=== PATIENT | female | born 1955 | race Two or more races ===

== ENCOUNTER → 2016-09-28 | Day surgery (SDC) | payer BC ==
[~2016-09-28] MED LIST: GLIP10TA13 PO; IV RINGERS,LACTATED 1000ML 1,000 ML IV SCH; LIDOCAINE 2% PF Vial for OR 5 ML VIAL. ONE; METF500T4 PO; PROPOFOL 40 ML IV ONE
[2016-09-28 11:15] VITALS: BP 120/81
--- NOTE | 2016-09-28 11:32 | PREOP HP ---
DATE OF SERVICE: 09/28/2016 DATE OF PROCEDURE: 09/28/2016 REQUESTING PHYSICIAN: Carol Reyes MD PRIMARY CARE PHYSICIAN: Carol Reyes MD REASON FOR PROCEDURE: Colon cancer screening and heme-positive stool. HISTORY OF PRESENT ILLNESS: This is a 61-year-old female who presents today for colorectal cancer screening. She previously had a colonoscopy 5-8 years ago and denies any blood in her stool or dark tarry stools. She was found to have heme-positive stool by her primary care physician. FAMILY HISTORY: Negative for colorectal cancer. ALLERGIES: No known drug allergies. PAST MEDICAL HISTORY: Significant for: 1. Depression. 2. Diabetes. SOCIAL HISTORY: She admits to tobacco, but denies IV drug abuse or alcohol. MEDICATIONS: Metformin. REVIEW OF SYSTEMS: A 13-point review of systems was done. It is positive as per HPI and otherwise negative. PHYSICAL EXAMINATION: GENERAL: She is a well-developed, well-nourished female in no apparent distress. HEENT: Oropharynx is clear. CARDIOVASCULAR: S1 and S2. LUNGS: Clear. ABDOMEN: Normoactive bowel sounds, soft, nontender, nondistended. EXTREMITIES: No edema. NEUROLOGIC: Awake, alert and oriented x 3. ASSESSMENT AND PLAN: Colorectal cancer screening. The risks and benefits of the procedure including bleeding, perforation and underlying were explained and she has agreed to proceed. Thank you for allowing me to participate in the care of this patient. KAMRAN NATARAJAN MD DR: CLIFF/kervin JOB#: [id number] / [id number] CAROL Henderson MD
== END | disposition home or self-care (01) ==
LOC: ENDOS 09:02
PROVIDERS: ATTEND Internal Medicine Gastroenterology
DX: K57.30 Diverticulosis of large intestine without perforation or abscess without bleeding (principal); K64.0 First degree hemorrhoids; E11.9 Type 2 diabetes mellitus without complications; F41.9 Anxiety disorder, unspecified; F32.9 Major depressive disorder, single episode, unspecified; F17.200 Nicotine dependence, unspecified, uncomplicated
CPT/HCPCS: 45378; 82947; J2704

== ENCOUNTER → 2017-07-05 | Outpatient (CLI) | payer BC ==
[2016-09-28 11:15] VITALS: BP 120/81
[~2017-07-05] MED LIST changes: -IV RINGERS,LACTATED 1000ML 1,000 ML IV SCH; -LIDOCAINE 2% PF Vial for OR 5 ML VIAL. ONE; -PROPOFOL 40 ML IV ONE
--- NOTE | 2017-07-05 12:37 | RAD ---
DATE: 07/05/2017. EXAM: DIGITAL SCREEN BILAT W/CAD. HISTORY: Routine mammographic screening. COMPARISON: 12/15/2014, 02/02/2012. This study was interpreted with the benefit of Computerized Aided Detection (CAD). FINDINGS: The breast parenchyma is heterogeneously dense, which could reduce sensitivity of mammography. Breast parenchyma level C.. There are no suspicious masses, microcalcifications or architectural distortion. Scattered calcifications are benign. The parenchymal pattern is stable. BI-RADS CATEGORY: 2 BENIGN FINDING(S). RECOMMENDED FOLLOW-UP: 12M 12 MONTH FOLLOW-UP. PQRS compliance statement: Patient information was entered into a reminder system with a target due date 07/05/2018 for the next mammogram. Mammography is a sensitive method for finding small breast cancers, but it does not detect them all and is not a substitute for careful clinical examination. A negative mammogram does not negate a clinically suspicious finding and should not result in delay in biopsying a clinically suspicious abnormality. "Our facility is accredited by the [employer] Mammography Program."
== END | disposition home or self-care (01) ==
LOC: MAMMO 07:56
PROVIDERS: ATTEND Family Medicine
DX: Z12.31 Encounter for screening mammogram for malignant neoplasm of breast (principal)
CPT/HCPCS: G0202; 77067

== ENCOUNTER → 2021-04-05 | Outpatient (CLI) | payer SELFPAY ==
[2016-09-28 11:15] VITALS: BP 120/81
[~2021-04-05] MED LIST changes: +METF500T16 PO; -METF500T4 PO
--- NOTE | 2021-04-05 15:51 | RAD ---
INDICATION: Reason: EVAL LUMP LEFT POSTERIOR UPPERBACK/LT BASE OF NECK / Spl. Instructions: / Histo ry: COMPARISON: None. FINDINGS: Focused ultrasound images are obtained of the region of concern for mass Within the subcutaneous soft tissues there is a oval-shaped hypoechoic masslike structure identified measuring 48 x 11 mm at the site of concern for palpable abnormality. IMPRESSION: * Hypoechoic masslike structure in the subcutaneous soft tissues. Nonspecific ultrasound appearance with causes such as lipoma within the differential but higher grade neoplastic causes not excluded. Further workup option includes either obtaining a follow-up to ensure no growth or if more complete c haracterization of the internal contents is desired CT or MRI could BE obtained to assess for solid c omponent and to assess whether this is fatty in nature. Electronically signed by: Leoncio Jimenez MD (04/05/2021 3:48 PM) [id number]
--- NOTE | 2021-04-06 12:35 | RAD ---
DATE: 04/05/2021 EXAM: DIGITAL SCREEN BILAT W/CAD HISTORY: Screening COMPARISON: Multiple prior exams dating back to 01/09/2008 This study was interpreted with the benefit of Computerized Aided Detection (CAD). Breast Density: SCATTERED The breast parenchyma shows scattered fibroglandular densities. Breast parenchyma level B. FINDINGS: No mass, suspicious calcification, or architectural distortion in either breast. IMPRESSION: No evidence of malignancy. BI-RADS CATEGORY: 1 NEGATIVE RECOMMENDED FOLLOW-UP: 12M 12 MONTH FOLLOW-UP PQRS compliance statement: Patient information was entered into a reminder system with a target due date for the next mammogram. Mammography is a sensitive method for finding small breast cancers, but it does not detect them all and is not a substitute for careful clinical examination. A negative mammogram does not negate a clinically suspicious finding and should not result in delay in biopsying a clinically suspicious abnormality. "Our facility is accredited by the [employer] Mammography [employer]."
== END ==
LOC: MAMMO 14:15
PROVIDERS: ATTEND Family Medicine
DX: Z12.31 Encounter for screening mammogram for malignant neoplasm of breast (principal); R22.2 Localized swelling, mass and lump, trunk
CPT/HCPCS: 76881; 77067